=== PATIENT | female | born 1960 | race American Indian/Alaskan Native ===

== ENCOUNTER 2016-11-30 08:18 | Outpatient (CLI) | payer BC ==
--- NOTE | 2016-11-30 09:45 | Ultrasound Report ---
BILATERAL DIGITAL DIAGNOSTIC MAMMOGRAM with CAD and LEFT BREAST ULTRASOUND: 11/30/16 08:18:00 CLINICAL: Palpable left breast lump. COMPARISON:None. FINDINGS: The breasts are heterogeneously dense, which may obscure small masses. An irregular left upper inner mass correlates with the palpable lump. It is located posterior near the pectoral muscle and is only partially included on the CC view. It measures approximately 2.0 cm.No architectural distortion or suspicious calcifications. The right breast is negative. Ultrasound of the left breast (including all four quadrants and the retroareolar area) was performed. An irregular solid hypoechoic mass at 11 o'clock 14 cm from the nipple and 6 mm from the pectoral muscle measures 2.0 x 1.8 x 1.6 cm. No other mass and no cyst. Ultrasound of the left axilla demonstrated no suspicious lymph nodes. 2 lymph nodes with central fat and benign morphology measures 2.1 x 1.5 and 2.0 x 0.8 cm. IMPRESSION: A suspicious 2.0 cm left breast mass at 11 o'clock 14 cm from nipple. No suspicious lymph nodes. Negative right breast. BI-RADS CATEGORY: 4--Suspicious RECOMMENDATION: Ultrasound guided needle core biopsy of the left breast. I discussed the findings and the recommendation for needle core biopsy with the patient at the time of the examination. ACR BI-RADS MAMMOGRAPHIC CODES: 0 = Needs additional imaging evaluation; 1 = Negative; 2 = Benign; 3 = Probably benign; 4 = Suspicious; 5 = Malignant; 6 = Known biopsy-proven malignancy COMMENT: 1. Dense breast tissue, i.e., adenosis, fibrocystic changes, etc., may obscure an underlying neoplasm. 2. Approximately 10% of cancers are not detected with mammography. 3. A negative mammography report should not delay biopsy if a clinically suspicious mass is present. COMMENT: Patient follow-up letters are generated by our [employer] application.
== END 2016-11-30 08:19 | disposition home or self-care (01) ==
LOC: SPVWC 08:18
PROVIDERS: ATTEND Physician Assistant
DX: N63 Unspecified lump in breast (principal)
CPT/HCPCS: 76641; G0204; 77066

== ENCOUNTER 2016-12-22 10:09 | Outpatient (CLI) | payer BC ==
--- NOTE | 2016-12-22 12:30 | Mammography Report ---
LEFT DIGITAL DIAGNOSTIC MAMMOGRAM: 12/22/16 10:09:00 CLINICAL: For clip placement immediately status post ultrasound biopsy. COMPARISON:11/30/16 FINDINGS: A biopsy clip is now identified within the upper inner mass. IMPRESSION: Concordant clip placement status post ultrasound biopsy. BI-RADS CATEGORY: 5 - - Highly Suggestive of Malignancy Pathology pending.
--- NOTE | 2016-12-22 12:32 | Ultrasound Report ---
VACUUM ASSISTED ULTRASOUND GUIDED NEEDLE CORE BIOPSY WITH CLIP PLACEMENT LEFT BREAST: 12/22/16 10:09:00 CLINICAL: Left breast mass at 11 o'clock 14 cm from the nipple. COMPARISON :11/30/16 FINDINGS: The procedure was explained to the patient and informed consent was obtained. Ultrasound demonstrated the previously described mass at 11 o'clock. The skin was prepped with Betadine and anesthetized with 1% lidocaine. Vacuum-assisted needle core biopsy was performed through a small dermatotomy using ultrasound guidance, 2% lidocaine with epinephrine for deep anesthesia and a 13-gauge Mammotome Elite biopsy device. Multiple cores were obtained and placed in formalin. A hydro-lida clip was deployed within the mass. Hemostasis was achieved with minimal pressure and a sterile dressing was applied. The patient tolerated the procedure well and there were no apparent complications. A two view mammogram demonstrated concordant clip placement. The patient left the department in good condition and was given instructions for wound care and follow up. IMPRESSION: Uncomplicated vacuum-assisted ultrasound core biopsy and clip placement left breast.
== END 2016-12-22 10:10 | disposition home or self-care (01) ==
LOC: SPVWC 10:09
PROVIDERS: ATTEND Physician Assistant
DX: N63 Unspecified lump in breast (principal)
CPT/HCPCS: 19083; 88305; A4648; G0206; 88361

== ENCOUNTER 2016-12-29 10:07 | Outpatient (CLI) | payer BC ==
--- NOTE | 2017-01-01 10:33 | Magnetic Resonance Report ---
BILATERAL BREAST MRI WITHOUT AND WITH CONTRAST: 12/29/16 10:07:00 CLINICAL: Newly diagnosed left breast cancer. 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 COMPARISON:11/30/16 bilateral mammogram.. TECHNIQUE: Axial 1.0-mm T1 without, axial high resolution 2.0-mm T2 and axial 1.0-mm dynamic Vibrant high-resolution postcontrast T1 fat saturation sequences on a 1.5 Alexandra magnet. The examination was performed with an 8 channel dedicated [place] breast coil. Post processing with CAD and subtraction was performed on an [employer] workstation. 18.0 cc of Multihance was injected without incident for the contrast portion of the exam. Consent was obtained prior to the administration of the contrast. FINDINGS: Right: Mild background parenchymal enhancement. No mass or suspicious enhancement of the right breast. No suspicious lymph nodes. Left: Mild background parenchymal enhancement. The known cancer is an irregular enhancing mass in the upper inner quadrant 17.4 cm from the nipple and 4.9 cm from the chest wall. It measures 2.0 x 1.6 x 1.4 cm and demonstrates heterogeneous enhancement with mixed kinetics, 106% peak enhancement and 7% type III washout. A localizer clip is identified within the mass. No other mass suspicious enhancement of the left breast. No suspicious lymph nodes. IMPRESSION: Known left breast cancer and no additional suspicious lesion of either breast. No suspicious lymph nodes. RIGHT BI-RADS 1 -- Negative LEFT BI-RADS 6 -- Known Cancer
== END 2016-12-29 10:08 | disposition home or self-care (01) ==
LOC: SPVIMAG 10:07
PROVIDERS: ATTEND Surgery
DX: C50.412 Malignant neoplasm of upper-outer quadrant of left female breast (principal)
CPT/HCPCS: 0159T; A9577; C8908; 77059

== ENCOUNTER 2017-01-17 07:07 | Day surgery (SDC) | payer BC ==
[~2017-01-17 07:07] MED LIST: WATER FOR IRRIG STERILE IR ONE
--- NOTE | 2017-01-17 09:47 | Anesthesia Consultation ---
Anesthesia Consult and Med Hx Date of service: 01/17/17 - Airway Anesthetic Teeth Evaluation: Good ROM Head & Neck: Adequate Mental/Hyoid Distance: Adequate Mallampati Class: Class II Intubation Access Assessment: Good - Pulmonary Exam CTA: Yes - Cardiac Exam Cardiac Exam: No Murmur - Pre-Operative Health Status ASA Pre-Surgery Classification: ASA2 Proposed Anesthetic Plan: General Nerve Block: PEC - Cardiovascular System Hx Hypertension: Yes (RECENT STARTED OCTOBER OR NOVEMBER 2916) - Other Systems Hx Cancer: Yes (LEFT BREAST CA)
--- NOTE | 2017-01-17 09:48 | Anesthesia Day of Surgery ---
Anesthesia Day of Surgery - Day of Surgery Patient Examined: Yes Patient H&P Reviewed: Yes Patient is NPO: Yes
[2017-01-17] MEDS ORDERED: LACTATED RINGERS 1,000 ML IV SCH (10:00)
[2017-01-17] MEDS ORDERED: VERSED IV NR (10:00)
[2017-01-17] MEDS ORDERED: MARCAINE-EPI/PF 0.5%-1:200,000 INFILTRATI ONE (10:30)
[2017-01-17] MEDS ORDERED: DECADRON IV ONE (10:30)
[2017-01-17] MEDS ORDERED: SUBLIMAZE IV ONE (10:30)
[2017-01-17] MEDS ORDERED: NEURONTIN PO NR (10:30)
[2017-01-17] MEDS ORDERED: VANCOMYCIN/NS 1 GM/250 ML 1 GM/250 ML BAG IV NR (11:30)
--- NOTE | 2017-01-17 11:48 | Short Stay Summary ---
Short Stay Documentation Date of service: 01/17/17 - History H&P: obtained from office - Allergies and Medications Current Medications: Allergies acetaminophen [From Percocet] Allergy (Intermediate, Verified 01/08/17 11:26) Unknown amoxicillin trihydrate [From Augmentin] Allergy (Intermediate, Verified 11:25) Hives LEAVES DARK [place] ON SKIN oxycodone HCl [From Percocet] Allergy (Intermediate, Verified 01/08/17 11:26) Unknown CAUSES NERVOUSNESS AND HALLUCINATIONS Penicillins Allergy (Intermediate, Verified 01/08/17 11:22) Unknown CAUSES NERVOUSNESS AND HALLUCINATIONS potassium clavulanate [From Augmentin] Allergy (Intermediate, Verified 01/08/17 11:25) Hives PLASTIC TAPE Allergy (Intermediate, Uncoded 01/08/17 11:25) Unknown Home Medications Medication Instructions Recorded Confirmed Last Taken Type amLODIPine [Norvasc] 10 mg PO DAILY 01/08/17 01/17/17 01/17/17 06:10 History Ibuprofen [Motrin 800 MG tab] 800 mg PO Q8HR PRN #30 tablet 01/17/17 Unknown Rx Active Medications Vancomycin HCl (Vancomycin/Ns 1 Gm/250 Ml) 1 gm in 250 mls @ 166.667 mls/hr IV PREOP NR Stop: 01/17/17 21:00 Midazolam HCl (Versed) 2 mg IV PREOP NR Stop: 01/17/17 23:59 - Brief post op/procedure progress note Date of procedure: 01/17/17 Pre-op diagnosis: Left breast cancer of the upper inner quadrant Post-op diagnosis: same Procedure: Ultrasound guided left partial mastectomy and SLNB Anesthesia: GETA Findings: Known left breast cancer at the 11:00 position 14 cm from the nipple; SLNs x3; radiograph specimen with clip and breast mass present Surgeon: LACIE CRAFT Estimated blood loss: minimal Pathology: list (left partial mastectomy and SLNs) Specimen disposition: to lab Condition: stable - Disposition Condition at discharge: Good Disposition: DC- TO HOME OR SELFCARE Short Stay Discharge Plan Activity: other (no heavy lifting) Diet: regular Wound: other (keep incision clean and dry; may shower in 24 hours; no baths, pools or lakes; do not rub or scrub incision) Follow up with: PRIMARY CAREMD [Primary Care Provider] - 7 Days LACIE CRAFT MD [Staff Physician] - 7 Days Prescriptions: Ibuprofen [Motrin 800 MG tab] 800 mg PO Q8HR PRN #30 tablet PRN Reason: Pain
[2017-01-17] MEDS ORDERED: DIPRIVAN 10 MG/ML IV ONE (12:14)
[2017-01-17] MEDS ORDERED: DILAUDID ONE (12:14)
[2017-01-17] MEDS ORDERED: XYLOCAINE MPF 2% ONE (12:15)
[2017-01-17] MEDS ORDERED: CLONIDINE 1,000 MCG/10 ML VIAL EP ONE (12:38)
--- NOTE | 2017-01-17 12:51 | Operative Report ---
Operative Report Operative Report: Date of procedure:January 17, 2017 Pre-operative diagnosis: Left breast cancer of the upper inner quadrant Post-operative diagnosis: Same Procedure name(s): Ultrasound guided left partial mastectomy of upper inner quadrant and sentinel lymph node biopsy Surgeon: Radha Davey MD Anesthesia: General Findings:Known left breast cancer at the 11:00 position 14 cm ffrom the nipple; SLBNs x3; radiograph specimen with clip and breast mass present Complications: none EBL: Minimal Drains: None Disposition: PACU in good condition Indications for operative procedure: This is a 56-year-old -[place] lady with newly diagnosed stage I left breast cancer of the upper inner quadrant. Recommendations were to proceed with the above procedure and she wished to proceed. Procedure in detail: Anesthesia placed left pectoral muscle block. The patient was taken to the operating room. She was laid supine and general anesthesia was administered without any complications. The left nipple was injected with radioisotope. The left breast and axilla were prepped and draped in the normal sterile operative fashion. Timeout was performed. The gamma probe was inserted into the axilla for identification of the sentinel lymph node. Skin incision was made with a 15 blade knife of the axilla with dissection taken down to the subcutaneous tissues. The axillary fascia was opened with the aid of the Bovie cautery. The gamma probe was inserted into the axilla and 3 SLNs were identified and dissected free and sent to pathology. Hemostasis was obtained. Axillary fascia was closed with interrupted 3-0 Vicryl and the skin closed using a running 4-0 Monocryl and skin affix. Attention was then taken towards known left breast cancer at the 11 o'clock position 14 cm from the nipple. Ultrasound was used to lida out the area of known breast cancer. Skin incision was made using a 15 blade knife with dissection taken down to the subcutaneous tissues. First began with raising the superior flap followed by raising of the medial, inferior and lateral flap. Breast cancer mass was then removed from the pectoralis muscle without incident. Hemostasis was obtained. Breast specimen was appropriately marked and sent to pathology. The subcutaneous tissues were approximated and closed with interrupted 3-0 Vicryl and skin brought together and closed using running 4 -0 Monocryl and skin affix. She tolerated surgery very well and was awakened from anesthesia without any complications and transported to PACU in good condition.
[2017-01-17] MEDS ORDERED: DECADRON ONE (13:51)
[2017-01-17] MEDS ORDERED: WATER FOR IRRIG STERILE IR ONE (15:13)
[2017-01-17] MEDS ORDERED: NACL 0.9% 1000 ML 1,000 ML ONE ×2 (15:13→16:38)
[2017-01-17] MEDS ORDERED: ZOFRAN ONE (15:57)
--- NOTE | 2017-01-17 16:08 | Post Anesthesia Evaluation ---
- Post Anesthesia Evaluation Patient Participated: Yes Airway Patent: Yes Stable Respiratory Function: Yes Nausea/Vomiting: No Temp > 96.8F: Yes Pain Manageable: Yes Adequeate Hydration: Yes Anesthesia Complications: No
--- NOTE | 2017-01-17 17:04 | Mammography Report ---
Operative specimen mammogram: A single tissue specimen is submitted that contains a biopsy marker within an area of increased tissue density.
[2017-01-17 17:17] VITALS: BP 102/64
== END 2017-01-17 18:05 | disposition home or self-care (01) ==
LOC: OR 07:07
PROVIDERS: ATTEND Surgery
DX: C50.212 Malignant neoplasm of upper-inner quadrant of left female breast (principal); I10 Essential (primary) hypertension; Z98.890 Other specified postprocedural states; Z90.710 Acquired absence of both cervix and uterus; Z88.1 Allergy status to other antibiotic agents; Z88.0 Allergy status to penicillin; Z88.8 Allergy status to other drugs, medicaments and biological substances; Z91.09 Other allergy status, other than to drugs and biological substances; Z79.899 Other long term (current) drug therapy
CPT/HCPCS: 19301; 38525; 76098; 78800; 88305; 88307; A9541; J0735; J1100; J1170; J2250; J2405; J2704; J3010; J3370; J7030; J7120

== ENCOUNTER 2017-03-22 13:11 | Outpatient (CLI) | payer BC ==
--- NOTE | 2017-03-22 14:08 | Mammography Report ---
BONE DEXA:03/22/17 13:11:00 CLINICAL: Recently diagnosed left breast cancer. No comparison. TECHNIQUE: Two site bone DEXA performed on an Hologic scanner. FINDINGS: The average BMD of the lumbar spine L1-L4 is 1.308g/cm squared with a T-score of +1.4 and a Z-score of +2.6. The average BMD of the left hip is 1.380g/cm squared with a T-score of +2.2 and a Z-score of normal +2.8. IMPRESSION: WHO classification: Normal with average fracture risk based on both spine and left hip measurements. RECOMMENDATION: Clinical correlation and routine screening. DEFINITIONS: BMD = Bone Mineral Density T-score = BMD related to mean peak bone mass of young adult (mean expressed in Standard Deviation) Z-score = Age matched BMD expressed in SD World Health Organization (WHO) Diagnostic Criteria Normal T-score > -1 SD Osteopenia T-score between -1 and -2.4 SD Osteoporosis T-score -2.5 SD or below NOTE: BMD is not the only risk factor for fracture. One should also consider factors such as the patient's age, risk of falling, previous osteoporotic fracture, family history of osteoporotic fractures, current smoker, and low body weight. Z-scores are not calculated if >80 years of age.
== END 2017-03-22 13:12 | disposition home or self-care (01) ==
LOC: SPVWC 13:11
PROVIDERS: ATTEND Surgery
DX: M81.0 Age-related osteoporosis without current pathological fracture (principal); C50.212 Malignant neoplasm of upper-inner quadrant of left female breast; I10 Essential (primary) hypertension; E66.9 Obesity, unspecified
CPT/HCPCS: 77080

== ENCOUNTER 2017-07-24 12:35 | Outpatient (CLI) | payer BC ==
--- NOTE | 2017-07-24 13:44 | Mammography Report ---
LEFT DIGITAL DIAGNOSTIC MAMMOGRAM WITH CAD: 07/24/17 12:35:00 CLINICAL: Breast cancer survivor status post left partial mastectomy. COMPARISON:12/22/16 FINDINGS: The previously described mass has been excised and there is a density at the surgical site consistent with a seroma measuring nearly 6 cm.No mass, architectural distortion or suspicious calcifications. IMPRESSION: Benign postsurgical changes. BI-RADS CATEGORY: 2 -- Benign RECOMMENDATION: Clinical followup and routine mammographic screening. ACR BI-RADS MAMMOGRAPHIC CODES: 0 = Needs additional imaging evaluation; 1 = Negative; 2 = Benign; 3 = Probably benign; 4 = Suspicious; 5 = Malignant; 6 = Known biopsy-proven malignancy COMMENT: 1. Dense breast tissue, i.e., adenosis, fibrocystic changes, etc., may obscure an underlying neoplasm. 2. Approximately 10% of cancers are not detected with mammography. 3. A negative mammography report should not delay biopsy if a clinically suspicious mass is present. COMMENT: Patient follow-up letters are generated via our [employer] application.
== END 2017-07-24 12:36 | disposition home or self-care (01) ==
LOC: SPVWC 12:35
PROVIDERS: ATTEND Surgery
DX: N63.20 Unspecified lump in the left breast, unspecified quadrant (principal); N64.89 Other specified disorders of breast; I10 Essential (primary) hypertension; Z85.3 Personal history of malignant neoplasm of breast; Z90.12 Acquired absence of left breast and nipple

== ENCOUNTER 2017-12-04 14:58 | Outpatient (CLI) | payer BC ==
--- NOTE | 2017-12-05 09:03 | Mammography Report ---
BILATERAL DIGITAL DIAGNOSTIC MAMMOGRAM WITH CAD : 12/04/17 14:58:00 CLINICAL: History of breast cancer status post left partial mastectomy and radiation therapy. She is also on Arimidex. COMPARISON:11/30/16 bilateral mammogram and left mammograms from 12/22/16 and 07/24/17. FINDINGS: The breasts are heterogeneously dense, which may obscure small masses. Left upper inner postsurgical scar. No mass, suspicious architectural distortion or suspicious calcifications. IMPRESSION: No mammographic evidence of malignancy. Benign postsurgical changes in the left breast. BI-RADS CATEGORY: 2 -- Benign RECOMMENDATION: Routine mammographic screening in one year. COMMENT: Patient follow-up letters are generated via our [employer] application.
== END 2017-12-04 14:59 | disposition home or self-care (01) ==
LOC: SPVWC 14:58
PROVIDERS: ATTEND Surgery
DX: R92.8 Other abnormal and inconclusive findings on diagnostic imaging of breast (principal); I10 Essential (primary) hypertension; K21.9 Gastro-esophageal reflux disease without esophagitis; Z85.3 Personal history of malignant neoplasm of breast; Z90.12 Acquired absence of left breast and nipple
CPT/HCPCS: 77066

== ENCOUNTER 2018-12-10 14:11 | Outpatient (CLI) | payer BC ==
--- NOTE | 2018-12-10 14:37 | Mammography Report ---
BILATERAL DIGITAL SCREENING MAMMOGRAM WITH CAD: 12/10/18 14:11:00 CLINICAL: Routine screening.Breast cancer survivor status post left partial mastectomy . COMPARISON:12/04/17 FINDINGS: The breasts are heterogeneously dense, which may obscure small masses. The left breast is smaller than the right with stable upper inner postsurgical scar. No mass, suspicious architectural distortion or suspicious calcifications. IMPRESSION: No mammographic evidence of malignancy. BI-RADS CATEGORY: 2 -- Benign RECOMMENDATION: Routine mammographic screening in one year. COMMENT: Patient follow-up letters are generated via our [employer] application.
== END 2018-12-10 14:12 | disposition home or self-care (01) ==
LOC: SPVWC 14:11
PROVIDERS: ATTEND Surgery
DX: Z12.31 Encounter for screening mammogram for malignant neoplasm of breast (principal); I10 Essential (primary) hypertension; K21.9 Gastro-esophageal reflux disease without esophagitis; Z90.710 Acquired absence of both cervix and uterus
CPT/HCPCS: 77067

== ENCOUNTER 2019-03-26 14:21 | Outpatient (CLI) | payer BC ==
--- NOTE | 2019-03-27 13:04 | Mammography Report ---
BONE DEXA CLINICAL: History of left breast cancer COMPARISON: 03/22/2017 TECHNIQUE: 2 site bone DEXA performed on an Hologic scanner. FINDINGS: The average BMD of the lumbar spine L1-L4 is 1.222g/cm squared with a T score of +0.7 and a Z score o f +2.0. This compares to 1.308g/cm squared on the last exam and represents a -6.6 % change from the [ previous baseline]. The average BMD of the left hip is 1.294 g/cm squared with a T score of +1.7and a Z score of +2.3. Th is compares to 1.380 g/cm squared on the last exam and represents a -6.2 % change from the [previous baseline]. IMPRESSION: 1. WHO classification: Normal with average fracture risk based on spine measurements. 2. WHO classification Normal with average fracture risk based on left hip measurements. 3. A moderate decline in both spine and left hip BMD compared to the previous exam. RECOMMENDATION: Clinical correlation and routine screening. Definitions: BMD equal bone mineral density T score = BMD related to peak bone mass of young adult ([place] expressed an standard deviation) Z score = age-matched BMD expressed in SD World health organization (WHO) diagnostic criteria Normal T score greater than equal to 1 standard deviation Osteopenia T score between -1 and -2.4 standard deviation Osteoporosis T score -2.5 standard deviation or below. Note: BMD is not the only risk factor for fracture; also consider factors such as the patient's age, risk of falling, previous osteoporotic fracture, family history of osteoporotic fractures, current sm oker and low body weight. Z scores are not calculated if greater than 80 years of age. Signer Name: Kee Todd MD Signed: 03/27/2019 1:00 PM Workstation Name: [id number]
== END 2019-03-26 14:22 | disposition home or self-care (01) ==
LOC: SPVWC 14:21
PROVIDERS: ATTEND Internal Medicine Hematology & Oncology
DX: Z13.820 Encounter for screening for osteoporosis (principal); C50.212 Malignant neoplasm of upper-inner quadrant of left female breast; I10 Essential (primary) hypertension; E66.9 Obesity, unspecified; M79.10 Myalgia, unspecified site; Z79.899 Other long term (current) drug therapy
CPT/HCPCS: 77080

== ENCOUNTER 2020-12-31 10:02 | Outpatient (CLI) | payer BC ==
--- NOTE | 2020-12-31 13:18 | Mammography Report ---
DIGITAL SCREENING MAMMOGRAM WITH CAD, 12/31/2020 CLINICAL INFORMATION / INDICATION: Routine screening mammography. SCREENING MAMMO TECHNIQUE: Digital bilateral 2D mammography was obtained in the craniocaudal and mediolateral obliqu e projections. This examination was interpreted with the benefit of Computer-Aided Detection analysis . COMPARISON: 11/30/2016 through 12/25/2019. FINDINGS: Breast Density: There are scattered areas of fibroglandular density. No dominant mass, suspicious calcifications, or architectural distortion in the right breast. Post lumpectomy/radiation changes in the left upper inner quadrant posteriorly are less prominent. No new abnormality is seen. IMPRESSION: No mammographic evidence of malignancy. Follow up recommendation: Routine yearly BI-RADS Category 2: Benign. A "normal" or negative report should not discourage follow up or biopsy of a clinically significant f inding. A written summary of these findings will be mailed to the patient. The patient will be entered into a mammography reporting system which will generate a reminder letter for the patient's next appointmen t at the appropriate interval. The [employer] recommends yearly mammograms starting at age 40 and continuing as l josephine as a woman is in good health. Breast MRI is recommended for women with an approximate 20-25% or greater lifetime risk of breast cancer, including women with a strong family history of breast or ova rosendo cancer or who have been treated for Hodgkin's disease. Signer Name: Brendon Greene MD Signed: 12/31/2020 1:14 PM Workstation Name: [id number]
== END 2020-12-31 10:03 | disposition home or self-care (01) ==
LOC: SPVWC 10:02
PROVIDERS: ATTEND Surgery
DX: Z12.31 Encounter for screening mammogram for malignant neoplasm of breast (principal); N64.89 Other specified disorders of breast
CPT/HCPCS: 77067

== ENCOUNTER 2021-03-31 14:32 | Outpatient (CLI) | payer BC ==
--- NOTE | 2021-03-31 16:30 | Mammography Report ---
DEXA BONE DENSITY SCAN INDICATION / CLINICAL INFORMATION: MALIGNANT NEOPLASM OF UPPER INNER QUAD OF LT BREAST. 61 years Female COMPARISON: 03/31/2019 LUMBAR SPINE, L1-L4: - Bone mineral density (BMD) = 1.181 g/cm2. - T-score = 0.3 - Z-score = 1.8 Change (%) since most recent prior (if available): None available. LEFT HIP, NECK : - Bone mineral density (BMD) = 1.070 g/cm2. - T-score = 0.8 - Z-score = 1.8 Change (%) since most recent prior (if available): 36% increase IMPRESSION: 1. WHO Classification: Normal bone density. Fracture Risk: Not Increased. Note: 10-Year Fracture Risk (FRAX) not reported. This DEXA unit lacks FRAX functionality. BMD Reporting Guidelines (ISCD, 2015) BMD Reporting in Postmenopausal Women and in Men Age 50 and Older - T-scores are preferred. - The WHO densitometric classification is applicable. BMD Reporting in Females Prior to Menopause and in Males Younger Than Age 50 - Z-scores, not T-scores, are preferred. This is particularly important in children. - A Z-score of -2.0 or lower is defined as below the expected range for age, and a Z-score above -2.0 is within the expected range for age. - Osteoporosis cannot be diagnosed in men under age 50 on the basis of BMD alone. - The WHO diagnostic criteria may be applied to women in the menopausal transition. http://www.iscd.org/official-positions/2182-qbpp-zihpcjmw-positions-adult/ Signer Name: Jose Parks MD Signed: 03/31/2021 4:26 PM Workstation Name: [id number]
== END 2021-03-31 14:33 | disposition home or self-care (01) ==
LOC: SPVWC 14:32
PROVIDERS: ATTEND Internal Medicine Hematology & Oncology
DX: C50.212 Malignant neoplasm of upper-inner quadrant of left female breast (principal)
CPT/HCPCS: 77080